=== PATIENT | female | born 1975 | race Hispanic/Latino ===

== ENCOUNTER 2018-03-14 18:58 | Emergency (ER) | payer SELFPAY ==
[2018-03-14 19:54] VITALS: BP 142/68
== END 2018-03-14 19:54 | disposition home or self-care (01) ==
LOC: ER 18:58
DX: S29.012A Strain of muscle and tendon of back wall of thorax, initial encounter (principal); S46.811A Strain of other muscles, fascia and tendons at shoulder and upper arm level, right arm, initial encounter; V43.02XA Car driver injured in collision with other type car in nontraffic accident, initial encounter; Y92.481 Parking lot as the place of occurrence of the external cause
CPT/HCPCS: 99282